=== PATIENT | male | born 1995 | race African-American/Black ===

== ENCOUNTER 2019-03-23 07:45 | Emergency (ER) | payer MEDICAID ==
[~2019-03-23] VITALS: Ht 172.7 cm; Wt 68.0 kg
[~2019-03-23 07:45] MED LIST: FLUO10CA25 PO
[2019-03-23] MEDS ORDERED: KETOROLAC 60MG/2ML VIAL IM ONE (08:30)
[2019-03-23 09:45] VITALS: BP 125/77
== END 2019-03-23 09:46 | disposition home or self-care (01) ==
LOC: ER 07:45
DX: M25.511 Pain in right shoulder (principal); V03.99XA Pedestrian with other conveyance injured in collision with car, pick-up truck or van, unspecified whether traffic or nontraffic accident, initial encounter; Y93.55 Activity, bike riding; Y92.9 Unspecified place or not applicable
CPT/HCPCS: 72125; 73030; 73070; 96372; 99284; J1885; Z7610; A4565

== ENCOUNTER 2019-05-26 20:30 | Emergency (ER) | payer MEDICAID ==
[~2019-05-26] VITALS: Ht 177.8 cm; Wt 78.0 kg
[2019-05-26] MEDS ORDERED: QUET50TA PO (20:45)
[2019-05-26] MEDS ORDERED: QUETIAPINE FUMARATE 50MG TABLET PO SCH (21:00)
[2019-05-26 22:52] VITALS: BP 119/65
[2019-05-26 22:56] LABS: BASOPHILS % 0.9 % (0.0-2.0); EOSINOPHILS % 0.8 % (0.0-5.0); HEMATOCRIT. 40.2 % (42.0-52.0); HEMOGLOBIN. 13.1 g/dL (14.0-18.0); LYMPHOCYTES % 32.8 % (20.0-50.0); MEAN CORPUSCULAR HEMOGLOBIN 28.1 pg (28.0-32.0); MEAN CORPUSCULAR VOLUME 86.2 fL (80.0-94.0); MEAN PLATELET VOLUME 9.1 fl (7.4-10.4); NEUTROPHILS % 60.5 % (40.0-76.0); PLATELET 136 x1000/uL (130-400); RED BLOOD CELL COUNT 4.67 mill/uL (4.7-6.1); RED CELL DISTRIBUTION WIDTH 12.5 % (11.6-14.6)
[2019-05-26 23:01] LABS: CHLORIDE 109 mEq/L (98-107)
[2019-05-26 23:04] LABS: ETHANOL BLOOD < 10 mg/dL
== END 2019-05-26 22:54 | disposition home or self-care (01) ==
LOC: ER 20:30
DX: F20.9 Schizophrenia, unspecified (principal); F17.200 Nicotine dependence, unspecified, uncomplicated
CPT/HCPCS: 36415; 80053; 80307; 80320; 80329; 85025; 99283; Z7610; G0480

== ENCOUNTER 2020-05-26 22:05 | Emergency (ER) | payer MEDICAID ==
[~2020-05-26] VITALS: Ht 167.6 cm; Wt 70.0 kg
[~2020-05-26 22:05] MED LIST changes: +QUET50TA PO
[2020-05-26 22:15] VITALS: BP 170/96
[2020-05-26] MEDS ORDERED: SODIUM CHLORIDE 0.9% 1,000 ML IV ONE (22:58)
== END 2020-05-26 23:46 | disposition left against medical advice (07) ==
LOC: ER 22:05
DX: Z53.21 Procedure and treatment not carried out due to patient leaving prior to being seen by health care provider (principal)
CPT/HCPCS: 93005; J7030; 80053; 80307; 80320; 80329; G0480

== ENCOUNTER 2021-12-14 22:50 | Emergency (ER) | payer MEDICAID ==
[~2021-12-14] VITALS: Ht 177.8 cm; Wt 73.0 kg
[2021-12-14 23:00] VITALS: BP 122/81
[2021-12-14] MEDS ORDERED: IBUPROFEN 400MG TABLET PO ONE (23:00)
[2021-12-14] MEDS ORDERED: TETANUS, DIPHTHERIA, PERTUSSIS VAC/PF 0.5ML (>10YR OLD) IM ONE (23:00)
== END 2021-12-15 02:50 | disposition home or self-care (01) ==
LOC: ER 22:50
DX: M79.642 Pain in left hand (principal); M25.562 Pain in left knee; F12.10 Cannabis abuse, uncomplicated
CPT/HCPCS: 73130; 73564; 90471; 90715; 99284

== ENCOUNTER 2021-12-17 18:03 | Emergency (ER) | payer MEDICAID ==
[~2021-12-17] VITALS: Ht 175.3 cm; Wt 77.0 kg
[2021-12-17 18:47] VITALS: BP 139/85
[2021-12-17 21:03] LABS: CLARITY URINE CLEAR (CLEAR); COLOR URINE YELLOW (YELLOW); KETONES URINE NEGATIVE (NEGATIVE); LEUKOCYTE ESTERASE URINE NEGATIVE (NEGATIVE); NITRITE URINE NEGATIVE (NEGATIVE); OCCULT BLOOD URINE TRACE (NEGATIVE); PH URINE 6.5 (4.5-8.0); PROTEIN URINE NEGATIVE (NEGATIVE); SPECIFIC GRAVITY URINE 1.011 (1.005-1.030)
[2021-12-17 21:04] LABS: BASOPHILS % 0.5 % (0.0-2.0); EOSINOPHILS % 0.5 % (0.0-5.0); HEMATOCRIT. 43.9 % (42.0-52.0); HEMOGLOBIN. 14.5 g/dL (14.0-18.0); LYMPHOCYTES % 20.1 % (20.0-50.0); MEAN CORPUSCULAR HEMOGLOBIN 28.2 pg (28.0-32.0); MEAN CORPUSCULAR VOLUME 85.6 fL (80.0-94.0); MEAN PLATELET VOLUME 8.9 fl (7.4-10.4); MONOCYTES % 5.3 % (2.0-8.0); NEUTROPHILS % 73.6 % (40.0-76.0); PLATELET 157 x1000/uL (130-400); RED BLOOD CELL COUNT 5.13 mill/uL (4.7-6.1); RED CELL DISTRIBUTION WIDTH 12.6 % (11.6-14.6)
[2021-12-17 21:13] LABS: *AMPHETAMINES SCREEN URINE NEGATIVE (NEGATIVE); *BARBITURATES SCREEN URINE NEGATIVE (NEGATIVE); *BENZODIAZEPINES SCREEN URINE NEGATIVE (NEGATIVE); *COCAINE SCREEN URINE NEGATIVE (NEGATIVE)
[2021-12-17 21:14] LABS: CANNABINOID URINE SCREEN PRESUMTIVE POSITIVE (NEGATIVE); METHADONE URINE SCREEN NEGATIVE (NEGATIVE); OPIATES URINE SCREEN NEGATIVE (NEGATIVE); PHENCYCLIDINE URINE SCREEN NEGATIVE (NEGATIVE)
[2021-12-17 21:18] LABS: CHLORIDE 108 mEq/L (98-107)
[2021-12-17 21:23] LABS: ETHANOL BLOOD < 10 mg/dL
[2021-12-17] MEDS ORDERED: LORAZEPAM 1MG TABLET PO ONE (21:30)
== END 2021-12-17 22:10 | disposition left against medical advice (07) ==
LOC: ER 18:03
DX: Z04.6 Encounter for general psychiatric examination, requested by authority (principal); F12.10 Cannabis abuse, uncomplicated
CPT/HCPCS: 36415; 80053; 80305; 80320; 81003; 85025; 99283; G0480